=== PATIENT | female | born 1945 | race Caucasian/White ===

== ENCOUNTER 2018-08-02 11:52 | Inpatient (IN) | payer MEDICARE, OTHER ==
[~2018-08-02] VITALS: Ht 152.4 cm; Wt 59.0 kg
[~2018-08-02 11:52] MED LIST: ALPR0.25 PO; BACITRACIN 50,000 UNIT ONE; BUPIVACAINE/EPI 0.5% 1:200K ONE; FLUT1BLS3 INH; IBUP200C8 PO; KRIL500C PO-COUM; MILK150C2 PO; NEBI5TAB3 PO; THROMBIN 20,000 UNIT VIAL TP ONE
[2018-08-02] MEDS ORDERED: LACTATED RINGERS 1,000 ML IV SCH (12:29)
[2018-08-02] MEDS ORDERED: GABAPENTIN 300 MG CAPSULE PO ONE (12:30)
[2018-08-02] MEDS ORDERED: LIDOCAINE-MPF 1%, 2ML INFIL ONE (12:30)
[2018-08-02] MEDS ORDERED: ACETAMINOPHEN 500 MG TABLET PO ONE (12:30)
[2018-08-02 13:05] VITALS: BP 148/88
[2018-08-02] MEDS ORDERED: PROPOFOL 50 ML ONE (14:54)
[2018-08-02] MEDS ORDERED: MIDAZOLAM 1 MG/ML, 2ML ONE (14:54)
[2018-08-02] MEDS ORDERED: FENTANYL PF 250 MCG/5ML ONE (14:54)
[2018-08-02] MEDS ORDERED: DEXAMETHASONE 4 MG/ML, 1ML ONE (16:00)
[2018-08-02] MEDS ORDERED: PROPOFOL 10 MG/ML, 20ML ONE (16:00)
[2018-08-02] MEDS ORDERED: ONDANSETRON 2MG/ML, 2ML ONE (16:00)
[2018-08-02] MEDS ORDERED: CEFAZOLIN 1,000 MG ONE (16:00)
[2018-08-02] MEDS ORDERED: ROCURONIUM 10 MG/ML,10ML ONE (16:00)
[2018-08-02] MEDS ORDERED: SUCCINYLCHOLINE 20 MG/ML, 10ML ONE (16:00)
[2018-08-02] MEDS ORDERED: CALCIUM CHLORIDE 10%, 10ML SYR ONE (16:10)
[2018-08-02] MEDS ORDERED: PROCHLORPERAZINE 5 MG/ML, 2ML IV PRN (17:30)
[2018-08-02] MEDS ORDERED: DIPHENHYDRAMINE 50 MG/ML, 1ML IVPush PRN ×2 (17:30→21:30)
[2018-08-02] MEDS ORDERED: hydrALAzine 20 MG/ML, 1ML IV PRN (17:30)
[2018-08-02] MEDS ORDERED: MEPERIDINE/PF 25MG/0.5ML IVPush PRN (17:30)
[2018-08-02] MEDS ORDERED: LABETALOL 5MG/ML, 20ML IV PRN (17:30)
[2018-08-02] MEDS ORDERED: PROMETHAZINE 25 MG/ML, 1ML IV PRN (17:30)
[2018-08-02] MEDS ORDERED: HALOPERIDOL 5 MG/ML IV PRN (17:30)
[2018-08-02] MEDS ORDERED: OXYcodone 5 MG/5 ML ORAL.SOL UDC PO PRN (17:30)
[2018-08-02] MEDS ORDERED: FENTANYL PF 100 MCG/2ML IV PRN (17:30)
[2018-08-02] MEDS ORDERED: METOPROLOL 1 MG/ML, 5ML IV PRN (17:30)
[2018-08-02] MEDS ORDERED: FENTANYL PF 100 MCG/2ML ONE (18:28)
[2018-08-02] MEDS ORDERED: HYDROmorphone 2 MG/ML, 1ML ONE (18:29)
[2018-08-02] MEDS: HYDROmorphone 2 MG/ML, 1ML IVPush PRN ×2 (18:37→18:49)
[2018-08-02] MEDS ORDERED: OXYcodone 5 MG/5 ML ORAL.SOL UDC ONE (18:56)
[2018-08-02 20:05] VITALS: BP 150/78
[2018-08-02] MEDS ORDERED: PHARMACY MAY ADJ FOR RENAL FX MC PRN (20:30)
[2018-08-02] MEDS ORDERED: ZOLPIDEM 5MG TABLET PO PRN (21:00)
[2018-08-02] MEDS ORDERED: PROMETHAZINE 25 MG/ML, 1ML IM PRN (21:30)
[2018-08-02] MEDS ORDERED: BISACODYL 10 MG SUPP PR PRN (21:30)
[2018-08-02] MEDS ORDERED: ACETAMINOPHEN 325 MG TABLET PO PRN (21:30)
[2018-08-02] MEDS ORDERED: METHOCARBAMOL 1,000 MG in DEXTROSE 5% 100 ML IV ONE (21:30)
[2018-08-02] MEDS ORDERED: ONDANSETRON 2MG/ML, 2ML IV PRN (21:30)
[2018-08-02] MEDS ORDERED: HYDROcodone/APAP 10/325 MG TABLET PO PRN (21:30)
[2018-08-02] MEDS ORDERED: DIPHENHYDRAMINE 50 MG CAPSULE PO PRN (21:30)
[2018-08-02] MEDS ORDERED: OXYcodone/APAP 5/325MG TABLET PO PRN (21:30)
[2018-08-02] MEDS ORDERED: morphine SULFATE 10 MG/ML, 1ML IV PRN (21:30)
[2018-08-02] MEDS ORDERED: MAGNESIUM HYDROXIDE 8%, 30ML UDC PO PRN (21:30)
[2018-08-02] MEDS ORDERED: DIAZEPAM 5 MG TABLET PO PRN (21:30)
[2018-08-02] MEDS ORDERED: CYCLOBENZAPRINE 10 MG TABLET PO PRN (21:30)
[2018-08-02] MEDS ORDERED: HYDROmorphone 2 MG/ML, 1ML IM PRN (21:30)
[2018-08-02] MEDS ORDERED: ACETAMINOPHEN 650 MG SUPP PR PRN (21:30)
[2018-08-02] MEDS ORDERED: DIAZEPAM 5 MG/ML, 2ML IV PRN (21:30)
[2018-08-02] MEDS ORDERED: DIPHENHYDRAMINE 50 MG/ML, 1ML IM PRN (21:30)
[2018-08-02] MEDS ORDERED: HYDROmorphone 2MG TABLET PO PRN (21:30)
[2018-08-02] MEDS ORDERED: METHOCARBAMOL 750 MG TABLET PO PRN (21:30)
[2018-08-02] MEDS: NS + 20MEQ KCL 1,000 ML IV SCH (22:30)
[2018-08-02] MEDS: CEFAZOLIN PMX 1GM/50ML 50 ML IVPB SCH (22:30)
[2018-08-03 01:30] VITALS: BP 118/60
[2018-08-03 05:27] VITALS: BP 107/57
[2018-08-03 06:14] LABS: BASOPHILS % (AUTO) 0 % (0-1); EOSINOPHILS % (AUTO) 0 % (1-7); LYMPHOCYTES # (AUTO) 0.47 x10^3/uL (1-3.4); LYMPHOCYTES % (AUTO) 6 % (22-44); MD NO; MEAN CORPUSCULAR HEMOGLOBIN 37.3 pg (27.0-34.8); MEAN CORPUSCULAR HGB CONC 34.5 g/dL (32.4-35.8); MEAN CORPUSCULAR VOLUME 108.3 fL (80-100); MEAN PLATELET VOLUME 6.9 fL (7.4-10.4); MONOCYTES # (AUTO) 0.54 x10^3/uL (0.2-0.8); MONOCYTES % (AUTO) 7 % (2-9); NEUTROPHILS # (AUTO) 6.56 x10^3/uL (1.8-6.8); NEUTROPHILS % (AUTO) 87 % (42-75); PLATELET COUNT 188 x10^3/uL (130-400); RED BLOOD COUNT 2.77 x10^6/uL (3.82-5.3); RED CELL DISTRIBUTION WIDTH 12.8 % (9.6-15.2)
[2018-08-03] MEDS: CEFAZOLIN PMX 1GM/50ML 50 ML IVPB SCH (06:17)
[2018-08-03] MEDS: NEBIVOLOL HCL 5 MG TABLET PO SCH ×2 (06:17→13:58)
[2018-08-03] MEDS: METHOCARBAMOL 750 MG in DEXTROSE 5% 100 ML IV SCH ×2 (07:40→16:00)
[2018-08-03] MEDS: SENNA/DOCUSATE TABLET PO SCH (08:44)
[2018-08-03 09:33] VITALS: BP 96/54
[2018-08-03] MEDS: NS + 20MEQ KCL 1,000 ML IV SCH ×2 (09:33→16:00)
[2018-08-03] MEDS ORDERED: SODIUM CHLORIDE 0.9%, 500ML IVBOLUS ONE (13:30)
[2018-08-03 13:32] VITALS: BP 88/60
[2018-08-03 13:34] VITALS: BP 91/60
[2018-08-03 21:14] VITALS: BP 124/58
[2018-08-03] MEDS: HYDROcodone/APAP 5/325 TABLET PO PRN (21:51)
[2018-08-04 01:39] VITALS: BP 103/72
[2018-08-04] MEDS: NS + 20MEQ KCL 1,000 ML IV SCH (05:08)
[2018-08-04] MEDS: HYDROcodone/APAP 5/325 TABLET PO PRN ×4 (06:30→19:40)
[2018-08-04] MEDS: SENNA/DOCUSATE TABLET PO SCH (07:44)
[2018-08-04] MEDS: METHOCARBAMOL 750 MG in DEXTROSE 5% 100 ML IV SCH ×3 (07:45→16:03)
[2018-08-04 08:48] VITALS: BP 110/69
[2018-08-04 15:04] VITALS: BP 127/74
[2018-08-04] MEDS ORDERED: HYDR-3240 PO (18:48)
[2018-08-04] MEDS ORDERED: CYCL-259 PO (18:49)
[2018-08-05] MEDS ORDERED: METHOCARBAMOL 750 MG TABLET PO SCH (06:00)
== END 2018-08-04 20:00 | disposition home or self-care (01) | DRG 454 ==
LOC: ORIP 11:52 → 4NOR 20:08
PROVIDERS: ADMIT Neurological Surgery; ATTEND Neurological Surgery
PROC: 01NB0ZZ Release Lumbar Nerve, Open Approach (ICD-10-PCS; 2018-08-02)
PROC: 0SB40ZZ Excision of Lumbosacral Disc, Open Approach (ICD-10-PCS; 2018-08-02)
PROC: 4A11X4G Monitoring of Peripheral Nervous Electrical Activity, Intraoperative, External Approach (ICD-10-PCS; 2018-08-02)
PROC: 0SB20ZZ Excision of Lumbar Vertebral Disc, Open Approach (ICD-10-PCS; 2018-08-02)
PROC: 0SG00J1 Fusion of Lumbar Vertebral Joint with Synthetic Substitute, Posterior Approach, Posterior Column, Open Approach (ICD-10-PCS; 2018-08-02)
PROC: 0SG00AJ Fusion of Lumbar Vertebral Joint with Interbody Fusion Device, Posterior Approach, Anterior Column, Open Approach (ICD-10-PCS; principal; 2018-08-02 14:30)
DX: M48.07 Spinal stenosis, lumbosacral region (principal); G95.29 Other cord compression; M43.16 Spondylolisthesis, lumbar region; M19.90 Unspecified osteoarthritis, unspecified site; J43.9 Emphysema, unspecified; E78.00 Pure hypercholesterolemia, unspecified; I10 Essential (primary) hypertension; F41.9 Anxiety disorder, unspecified
CPT/HCPCS: 36415; 72100; 85025; C1713; G0378; J0690; J1100; J1170; J2250; J2405; J2704; J3010; J3480; C1762; C1763; J0330; J2800; J7040; J7120